=== PATIENT | male | born 1945 | race Caucasian/White ===

== ENCOUNTER 2016-05-26 10:34 | Inpatient (IN) | payer OTHER ==
[~2016-05-26] VITALS: Ht 180.3 cm; Wt 59.6 kg
[2016-05-26] VITALS (8 sets, daily range): BP systolic 72–106; BP diastolic 42–70; PULSE 79–104; TEMP 36.5–36.7; O2SAT 93–96; Ht 180.3 cm; Wt 59.6 kg
[2016-05-26] MEDS ORDERED: ALUMINUM/MAGNESIUM/SIMETH (MAALOX MAX) 30 ML UDC PO PRN (12:45)
[2016-05-26] MEDS ORDERED: ONDANSETRON INJ 2 MG/ML 2 ML VIAL IV PRN (12:45)
[2016-05-26] MEDS ORDERED: NITROGLYCERIN 0.4 MG SL PER TAB CHARGE SL PRN (12:45)
[2016-05-26] MEDS ORDERED: MAGNESIUM HYDROXIDE SUSP 30 ML UDC PO PRN (12:45)
[2016-05-26] MEDS ORDERED: POLYETHYLENE (MIRALAX) 17 GM PACK PO PRN (12:45)
--- NOTE | 2016-05-26 13:18 | History and Physical ---
History & Physical Date & Time of Service: May 26, 2016 at 12:49 Chief Complaint: Unstable Angina Primary Care Physician: Misha Abernathy D.O. History of Present Illness Source: patient Patient is a pleasant 70 y/o male, with PMHx of HTN, hyperlipidemia, seizure disorder, Alzheimer's, who was transferred from [facility] due to reproducible chest pain and elevated troponin at 0.10. Patient is a very poor historian, secondary to dementia. No family present, attempted to call contact number with no answer. Per patient, unsure if will be coming today because "she has other family members who are very sick." According to patient, he currently has no complaints. He states he has left shoulder/wrist discomfort, but that has been ongoing for "years." When asking patient why he is here today , he states, "I think because I needed to get blood work." While speaking with patient, he made a slight move and grabbed both sides of his rib cage. Patient states he fell the other day while shovelling snow and has pain since. Patient denies any fever, chills, sweats, lightheadedness, dizziness, vision changes, CP , palpitations, edema, SOB, wheezing, cough, abdominal pain, nausea, vomiting, diarrhea, urinary symptoms, melena, numbness/tingling, weakness, anxiety/ depression, active bleeding, or new skin discoloration/changes. According to transferred records, patient arrived to [facility] via EMS with complaints of rib pain and difficulty with breathing after shoveling snow on 05/25. Pain is a 10/10 with deep breaths and 6/10 siting still. Pain is worse with moving. Labs @ 0615: CBC- WBC 4.6, RBC 4.38, hgb 13.9, plt count 219. PRP- Na 137, K 3.7, BUN/Cr 57/1.32, glucose 108, liver enzymes WNL, troponin 0.10 and CK-MB 1.2 Studies: Chest CT- no acute findings. Old right-sided rib fracture Past Medical/Surgical History 1. HTN 2. Hyperlipidemia 3. Seizure disorder 4. Alzheimer's 5. Tobacco abuse Family History family hx not recorded as patient has dementia Social History Smoking Status: Current Every Day Smoker (10 cigs per day ) Alcohol Use: none Marital Status: Housing status: lives with family Allergies Coded Allergies: No Known Allergies (Unverified , 05/26/16) Physical Exam Vital Signs Date Time Temp Pulse Resp B/P Pulse Ox O2 Delivery O2 Flow Rate FiO2 05/26/16 12:12 36.5 92 20 102/68 96 Room Air General Appearance: no apparent distress Head: normocephalic, atraumatic Eyes: normal inspection, PERRL ENT: hearing grossly normal Neck: supple Respiratory/Chest: chest non-tender, lungs clear, no respiratory distress, no accessory muscle use, + pertinent finding (No tenderness to palpation of rib cage bilaterally ) Cardiovascular: regular rate, rhythm, normal peripheral pulses Abdomen/GI: normal bowel sounds, non tender, soft Back: normal inspection Extremities/Musculoskelatal: no calf tenderness, no pedal edema Neurologic/Psych: alert, normal mood/affect Skin: normal color, warm/dry, no rash Diagnostics Laboratory Results Results Past 24 Hours Test 05/26/16 12:34 Range/Units Creatine Kinase MB Ratio 0-3.0 Impression Assessment and Plan 70 y/o male, with PMHx of HTN, hyperlipidemia, seizure disorder, Alzheimer's, who was transferred from [facility] due to reproducible chest pain and elevated troponin at 0.10. CP/elevated troponin: - Admit tele for cardiac monitoring - Start ASA 81 mg PO daily - IV NSS @ 100 ml/hr - Trend cardiac enzymes x3 - Imaging/studies per [facility]: -- Chest CT- no acute findings. Old right-sided rib fracture - Obtain EKG - NPO, until studies/labs and more HPI obtained to decide on further treatment plan---> ?? cardiology consult- ?cath - Check ha1c - Follow CBC and BMP HTN: - Continue Lisinopril 20 mg PO daily Hyperlipidemia: - Continue Atorvastatin 40 mg PO HS - Check lipid panel tomorrow AM Seizure disorder: - Continue Lamictal 150 mg PO BID Alzheimer's: - Continue Namenda 10 mg PO BID Tobacco abuse, 10 cigs per day: - Smoking cessation GI Prophylaxis: - Maalox PRN - IV Zofran PRN - Colace and/or Milk of Mag PRN DVT prophylaxis: - Heparin 5000 units SQ q12 hrs - KAR and SCDs Code Status: - LEVEL I, FULL i personally examined pt and verified all crocker points w T Murarik PAC chest pain - seems actually most c/w rib pain EKG nonacute - ?old Q's vs lead placement/RSR' trop minimally but repeatedly not normal high risk for CAD, never had known IN, never had C vitals noted, nad, talkative, seems easily confused. family present chest pain / elevated troponin -seems to represent unstable angina since he's high risk -med management, echo, trend enzymes, assess current state of risks w BP follow up, A1c, lipid panel -cardiology eval for ?timing of LHC hypotension -appearing somewhat dry - notes he almost never does any exertion - shoveling snow was very unusual for him - IVF, follow DVT proph -heparin SQ otherwise as above Level of Care Med/Surg Advanced Directives Existing Living Will: No Existing Power of Lead Setter: No Resuscitation Status FULL RESUSCITATION VTE Prophylaxis VTE Risk Assessment Done? Y/N: Yes Risk Level: Moderate Given or contraindicated: Unfractionated heparin SQ, T.E.D. Stockings, SCD's
[2016-05-26 13:48] LABS: HEMATOCRIT 36.6 % (42-52); MEAN CELL VOLUME 90.6 fL (80-100); MEAN CORPUSCULAR HEMOGLOBIN 31.9 pg (25-34); MEAN CORPUSCULAR HGB CONC 35.2 g/dl (32-36); MEAN PLATELET VOLUME 9.3 fL (7.4-10.4); PLATELET COUNT 196 K/uL (130-400); RED BLOOD COUNT 4.04 M/uL (4.7-6.1); WHITE BLOOD COUNT 2.21 K/uL (4.8-10.8)
[2016-05-26 14:02] LABS: INR 1.1 (0.9-1.1); PROTHROMBIN TIME (PATIENT) 12.3 SECONDS (9.0-12.0)
[2016-05-26] MEDS ORDERED: LIDODERM (LIDOCAINE) PATCH 5% TD ONE (14:55)
[2016-05-26] MEDS ORDERED: ASPIRIN 81 MG ECTAB PO STA (15:09)
[2016-05-26] MEDS ORDERED: SODIUM CHLORIDE 0.9% 1000ML 1,000 ML IV SCH (15:30)
--- NOTE | 2016-05-26 16:56 | ECHOCARDIOGRAM REPORT ---
*NOTICE TO RECEIVING REPUBLICAN AGENCY This information is strictly Confidential and protected under [place] law. [place] law prohibits you from making any further disclosure of this information unless further disclosure is expressly permitted by the written consent of the person to whom it pertains or is authorized by law. A general authorization for the release of medical or other information is not sufficient for this purpose. Hospital accepts no responsibility if the information is made available to any other person, INCLUDING THE PATIENT. Interpretation Summary * Normal to hyperdynamic left ventricular systolic function. * Normal chamber dimensions. * No significant valvular regurgitation noted. * Left ventricular diastolic dysfunction. Procedure Details * A complete two-dimensional transthoracic echocardiogram was performed (2D, M-mode, Doppler and color flow Doppler). Left Ventricle * The left ventricle is normal in size. * There is normal left ventricular wall thickness. * Left ventricular systolic function is normal. * Ejection Fraction = 65-70%. * A full diastolic examination was done with clinical findings of Class I diastolic dysfunction. * The left ventricular wall motion is normal. Right Ventricle * The right ventricle is normal in size and function. Atria * The left atrial size is normal. * Right atrium not well visualized. Mitral Valve * The mitral valve is grossly normal. * There is no mitral valve stenosis. * Significant mitral regurgitation is absent. Tricuspid Valve * The tricuspid valve is not well visualized. * Significant tricuspid regurgitation is absent. Aortic Valve * The aortic valve is not well visualized. * The valve appears to be calcified, trileaflet , and to have decreased but adequate opening. * There is no significant aortic regurgitation. Pulmonic Valve * The pulmonic valve is not well visualized. * There is no significant pulmonary regurgitation. Great Vessels * Borderline aortic root dilatation. Pericardium/Pleural * There is no pericardial effusion. Great Vessels * Normal inferior vena cava diameter and respiratory variation suggests normal central venous pressure. MMode 2D Measurements and Calculations IVSd 0.97 cm IVSs 1.1 cm LVIDd 4.5 cm LVIDs 2.8 cm LVPWd 0.87 cm LVPWs 1.2 cm IVS/LVPW 1.1 FS 37.7 % EDV(Teich) 93.1 ml ESV(Teich) 29.9 ml EF(Teich) 67.9 % EDV(cubed) 92.0 ml ESV(cubed) 22.3 ml EF(cubed) 75.8 % % IVS thick 16.7 % % LVPW thick 35.2 % LV mass(C)d 137.3 grams LV mass(C)dI 67.3 grams/m\S\2 LV mass(C)s 93.8 grams LV mass(C)sI 46.0 grams/m\S\2 SV(Teich) 63.2 ml SI(Teich) 31.0 ml/m\S\2 SV(cubed) 69.7 ml SI(cubed) 34.2 ml/m\S\2 Ao root diam 3.9 cm Ao root area 12.1 cm\S\2 LA dimension 3.6 cm LA/Ao 0.92 LVOT diam 2.0 cm LVOT area 3.0 cm\S\2 Doppler Measurements and Calculations MV E max jesus 39.5 cm/sec MV A max jesus 76.4 cm/sec MV E/A 0.52 MV P1/2t max jesus 39.3 cm/sec MV P1/2t 101.7 msec MVA(P1/2t) 2.2 cm\S\2 MV dec slope 113.1 cm/sec\S\2 MV dec time 0.38 sec
[2016-05-26] MEDS: ACETAMINOPHEN 325 MG TAB PO PRN (19:01)
[2016-05-26] MEDS: ATORVASTATIN 40 MG TAB PO SCH (19:37)
[2016-05-26] MEDS: MEMANTINE 10 MG TAB PO SCH (19:37)
[2016-05-26] MEDS: HEPARIN SOD 5000 UNIT/0.5 ML CARP SQ SCH (19:38)
[2016-05-26] MEDS: SODIUM CHLORIDE 0.9% 1000ML 1,000 ML IV SCH (22:38)
[2016-05-27] VITALS (9 sets, daily range): BP systolic 80–130; BP diastolic 52–90; PULSE 79–112; TEMP 36.2–36.8; O2SAT 79–94
[2016-05-27] MEDS ORDERED: NURSING VERBAL MED ORDER ONE ×2 (01:00→13:30)
[2016-05-27] MEDS: ACETAMINOPHEN 325 MG TAB PO PRN (03:55)
[2016-05-27] MEDS: DICLOFENAC SOD 1% GEL 100 GM TUBE EXT PRN ×2 (03:55→09:02)
[2016-05-27 06:18] LABS: HEMATOCRIT 36.1 % (42-52); MEAN CELL VOLUME 90.3 fL (80-100); MEAN CORPUSCULAR HEMOGLOBIN 31.3 pg (25-34); MEAN CORPUSCULAR HGB CONC 34.6 g/dl (32-36); MEAN PLATELET VOLUME 9.6 fL (7.4-10.4); PLATELET COUNT 208 K/uL (130-400); WHITE BLOOD COUNT 4.24 K/uL (4.8-10.8)
[2016-05-27 06:39] LABS: ESTIMATED AVERAGE GLUCOSE 114 mg/dl; HA1C FLAG Normal (Normal)
[2016-05-27 07:11] LABS: BLOOD UREA NITROGEN 50 mg/dl (7-18); BUN/CREATININE RATIO 20.9 (10-20); CALCIUM 7.8 mg/dl (8.5-10.1); CARBON DIOXIDE 16 mmol/L (21-32); CHLORIDE 105 mmol/L (98-107); GLUCOSE 58 mg/dl (70-99); POTASSIUM 4.5 mmol/L (3.5-5.1); SODIUM 136 mmol/L (136-145)
[2016-05-27 07:19] LABS: CHOLESTEROL 63 mg/dl (0-200); CHOLESTEROL/HDL RATIO 1.9; HDL CHOLESTEROL 34 mg/dl; LDL CHOLESTEROL CALCULATED 11 mg/dl; TRIGLYCERIDES 91 mg/dl (0-150); VERY LOW DENSITY LIPOPROT CALC 18 mg/dl
[2016-05-27] MEDS ORDERED: LISINOPRIL 20 MG TAB PO SCH (09:00)
[2016-05-27] MEDS: SODIUM CHLORIDE 0.9% 1000ML 1,000 ML IV SCH (09:00)
[2016-05-27] MEDS: MEMANTINE 10 MG TAB PO SCH ×2 (09:02→21:11)
[2016-05-27] MEDS: LIDODERM (LIDOCAINE) PATCH 5% TD SCH (09:02)
[2016-05-27] MEDS: ASPIRIN 81 MG ECTAB PO SCH (09:02)
[2016-05-27] MEDS: HEPARIN SOD 5000 UNIT/0.5 ML CARP SQ SCH ×2 (09:07→21:16)
[2016-05-27] MEDS ORDERED: SODIUM CHLORIDE 0.9% 500ML 500 ML IV SCH (10:00)
[2016-05-27] MEDS ORDERED: SODIUM CHLORIDE 0.9% 1000ML 1,000 ML IV SCH ×2 (11:00→22:15)
[2016-05-27] MEDS ORDERED: NICOTINE 21 MG/24 HR TDSY TD ONE (13:45)
--- NOTE | 2016-05-27 13:53 | CARDIOLOGY CONSULTATION ---
DATE OF CONSULTATION: 05/27/2016 PERTINENT HISTORY: Mr. Condon is a demented 70-year-old white male transferred from the [facility] yesterday with reproducible chest pain and elevated troponin. This consultation was ordered to assist in his management. The majority of the history is taken from the chart and the patient's son who was at the bedside. Apparently, the patient was shoveling snow on the 25 of May. He developed a reproducible chest pain, proceeded to the Emergency Room at [facility] for further care. His troponin I level is mildly elevated at 0.1 and he was transferred to our institution for consideration of a cardiac catheterization. Of note, a CT scan of the chest performed at [facility] failed to show an aortic catastrophe or evidence of pulmonary embolus. The patient is perseverating today on getting out of bed. He claims to have had no chest discomfort in the last 24 hours. He explains to his son that he needs to "get up and go do his laundry." Results of his echocardiogram and diagnostic testing reviewed with the patient's son at the bedside. PAST MEDICAL HISTORY: 1. Hypertension. 2. Hypercholesterolemia. 3. Seizure disorder. 4. Alzheimer dementia. MEDICATIONS: 1. Lipitor 40 mg at bedtime. 2. Aspirin 81 mg per day. 3. Heparin 5000 units subQ q. 12 hours. 4. Lamictal 150 mg b.i.d. 5. Namenda 10 mg b.i.d. ALLERGIES: None. SOCIAL HISTORY: The patient is and lives with his . Smokes 10 cigarettes per day. No alcohol. FAMILY HISTORY: Unobtainable. Negative according to the son. REVIEW OF SYSTEMS: Unobtainable. PHYSICAL EXAMINATION: GENERAL: This is a well-developed, well-nourished white male, appearing older than his stated age. VITAL SIGNS: Blood pressure is 105/70 with a regular pulse of 78. Respiratory rate is 18. The patient is afebrile at 36.6 degrees Celsius. Saturation is 90% on room air. HEENT: Negative. NECK: Supple with full carotid upstrokes. There are no carotid bruits. Jugular venous pressure is flat at 90 degrees. There is no thyromegaly. CARDIOVASCULAR: Reveals a regular rhythm with normal S1 and S2. Heart sounds are distant. No obvious murmurs. LUNGS: Clear without rales, rhonchi, or wheezes. ABDOMEN: Benign without bruits. EXTREMITIES: Reveal intact radial artery pulses bilaterally. There is no peripheral edema. DATA: CBC notes a hemoglobin of 12.5, hematocrit 36.1, white count 4.2, platelet count 208,000. Electrolytes note a sodium of 136, potassium 4.5, chloride 105, bicarb 16, BUN 50, creatinine 2.4, glucose 141. Troponin I level on presentation was 0.068 with followup values of 0.053 and 0.061. Cholesterol panel notes an LDL of 11 and an HDL of 34. EKG notes sinus rhythm with a left axis deviation and poor R-wave progression across the anterior precordium. Echocardiogram notes normal to hyperdynamic systolic function with an ejection fraction of 65-70%. There is evidence of diastolic dysfunction. No significant valvular pathology. IMPRESSION: Mr. Condon was apparently transferred to this institution with reproducible musculoskeletal chest pain. His poor mental status makes history taking at this time difficult. His troponin is mildly elevated, but he demonstrates normal to hyperdynamic systolic function. The patient's profound dementia is a contraindication to proceeding with a cardiac catheterization. He is hemodynamically stable at this time and I would follow conservative medical care. This was discussed in detail with the patient's son who was at the bedside. PLAN: 1. We would not proceed with cardiac catheterization. 2. Continue with medical management for possible coronary disease. 3. Further recommendations depending on his clinical course.
[2016-05-27 15:22] LABS: BUN/CREATININE RATIO 23.1 (10-20); CALCIUM 7.8 mg/dl (8.5-10.1); CREATININE 2.6 mg/dl (0.60-1.40); POTASSIUM 4.4 mmol/L (3.5-5.1)
--- NOTE | 2016-05-27 16:17 | DIAGNOSTIC IMAGING REPORT ---
SINGLE VIEW CHEST CLINICAL HISTORY: Rhonchi on physical examination. FINDINGS: An AP, portable, upright chest radiograph is obtained. No prior studies are available for comparison at the time of dictation. The examination is significantly degraded by portable technique and patient rotation. The cardiomediastinal heart is enlarged and there is atherosclerotic calcification of the thoracic aorta. There is mild pulmonary vascular congestion. Small pleural effusions are identified there is focal eventration of the right hemidiaphragm. There are bibasilar airspace opacities. Emphysema and chronic appearing interstitial thickening are noted. No pneumothorax is seen. The skeletal structures are osteopenic. The bony thorax is grossly intact. IMPRESSION: 1. Cardiomegaly with evidence of mild congestive failure. 2. Emphysema. 3. Small pleural effusions and bibasilar airspace opacities. This likely represents atelectasis. Clinical correlation will be required. Electronically signed by: Jefry Gan M.D. 05/27/2016 4:16 PM Dictated Date/Time: 05/27/2016 4:14 PM
--- NOTE | 2016-05-27 16:42 | DIAGNOSTIC IMAGING REPORT ---
ULTRASOUND KIDNEYS AND BLADDER CLINICAL HISTORY: Acute renal insufficiency. COMPARISON STUDY: No priors. TECHNIQUE: Real-time, grayscale, and color flow sonography of the kidneys and bladder is performed. Images are reviewed in the transverse and longitudinal planes. FINDINGS: Kidneys: The kidneys are normal in size and echotexture. The right kidney measures 9.9 cm in length and the left kidney measures 10.7 cm in length. There is no hydronephrosis. No shadowing renal calculi are identified. A 6.3 cm exophytic cyst arises from left upper pole. There is no sonographic evidence of solid renal mass lesion. Trace bilateral perinephric fluid is identified. Bladder: The bladder is decompressed and not well assessed. Ureteral jets were not seen. Pleural spaces: There is a trace right pleural effusion. Abdomen: There is a small volume of abdominopelvic ascites. IMPRESSION: 1. The kidneys demonstrate cortical atrophy and are without hydronephrosis. 2. The bladder was decompressed and not well assessed. 3. Trace right pleural effusion. 4. Small volume of abdominopelvic ascites. Electronically signed by: Jefry Gan M.D. 05/27/2016 4:40 PM Dictated Date/Time: 05/27/2016 4:38 PM
[2016-05-27 18:05] LABS: MANUAL MICROSCOPIC REQUIRED? YES; URINE APPEARANCE CLOUDY (CLEAR); URINE BILIRUBIN NEG (NEG); URINE COLOR YELLOW; URINE NITRITE NEG (NEG); URINE PH 5.5 (4.5-7.5); URINE SPECIFIC GRAVITY >= 1.030 (1.000-1.030); UROBILINOGEN NEG (NEG)
[2016-05-27 18:06] LABS: REVIEW REQ? NO
[2016-05-27 18:18] LABS: URINE BACTERIA 1+ (NEG); URINE HYALINE CAST >30 /lpf (0-5); URINE WBC >30 /hpf (0-5)
[2016-05-27 18:19] LABS: URINE WHITE BLOOD CELL CAST 0-3 /lpf (0)
[2016-05-27] MEDS: ATORVASTATIN 40 MG TAB PO SCH (21:11)
[2016-05-27] MEDS ORDERED: VANCOMYCIN INJ 1,000 MG in SODIUM CHLORIDE 0.9% 250ML 250 ML IV STA (21:57)
--- NOTE | 2016-05-27 22:08 | DIAGNOSTIC IMAGING REPORT ---
KUB CLINICAL HISTORY: Hypoxia. FINDINGS: 2 AP, portable, supine abdominal radiograph are correlated with renal ultrasound performed the same day 05/27/2016. There is a nonobstructed abdominal bowel gas pattern. No evidence of intraperitoneal free air is seen on these supine views. Calcified phleboliths are present in the pelvis. There is atherosclerotic calcification of the femoral arteries. The skeletal structures are osteopenic. Lumbosacral spondylosis is observed. There is a left pleural effusion. IMPRESSION: Nonobstructed abdominal bowel gas pattern. Electronically signed by: Jefry Gan M.D. 05/27/2016 10:07 PM Dictated Date/Time: 05/27/2016 10:06 PM
[2016-05-27] MEDS ORDERED: IPRATROPIUM BROMIDE NEB SOLN 0.02% 2.5 ML VIAL INH PRN (22:15)
[2016-05-27] MEDS ORDERED: LEVALBUTEROL 1.25MG/0.5ML NEB INH PRN (22:15)
--- NOTE | 2016-05-27 22:16 | DIAGNOSTIC IMAGING REPORT ---
SINGLE VIEW CHEST CLINICAL HISTORY: Dyspnea. FINDINGS: An AP, portable, upright chest radiograph is compared to study performed earlier the same day 05/27/2016. The examination is significantly degraded by portable technique and patient rotation. The cardiomediastinal heart is enlarged and there is atherosclerotic calcification of the thoracic aorta. Pulmonary basilar congestion has worsened from earlier today. Mild interstitial edema is suspected. Small pleural effusions are identified there is focal eventration of the right hemidiaphragm. There are bibasilar airspace opacities. Emphysema and chronic appearing interstitial thickening are noted. No pneumothorax is seen. The skeletal structures are osteopenic. The bony thorax is grossly intact. IMPRESSION: 1. Cardiomegaly with worsening congestive failure and evidence of interstitial edema. 2. Emphysema. 3. Small pleural effusions and bibasilar airspace opacities. This likely represents atelectasis. Clinical correlation will be required. 4. Gas density below the right hemidiaphragm demonstrates lung markings and likely represents the posterior aspect of the diaphragm. Intraperitoneal free air is considered much less likely. Correlation with decubitus abdominal views is recommended for further assessment. Electronically signed by: Jefry Gan M.D. 05/27/2016 10:15 PM Dictated Date/Time: 05/27/2016 10:11 PM
[2016-05-27 22:19] LABS: ISTAT ALLEN TEST Pass; ISTAT ARTERIAL BLOOD GAS HCO3 13 meq/L (19-24); ISTAT ARTERIAL BLOOD GAS PCO2 29 mmHg (35-46); ISTAT ARTERIAL BLOOD GAS PO2 58 mmHg (80-95); ISTAT ARTERIAL BLOOD GAS pH 7.25 (7.35-7.45); ISTAT CARBON DIOXIDE 14 mEq/l (24-31); ISTAT DELIVERY SYSTEM Cannula; ISTAT SITE R Radial
[2016-05-27] MEDS ORDERED: VANCOMYCIN INJ 1,300 MG in SODIUM CHLORIDE 0.9% 250ML 250 ML IV SCH (22:30)
[2016-05-27] MEDS ORDERED: PIPERACILL/TAZOBAC IV 3.375 GM in DEXTROSE 5% 100ML 100 ML IV SCH (22:30)
[2016-05-27] MEDS ORDERED: PIPERACILL/TAZOBAC CONSULT ACTIVE PRN (22:30)
[2016-05-27] MEDS ORDERED: VANCOMYCIN CONSULT ACTIVE PRN (22:30)
--- NOTE | 2016-05-27 22:51 | Progress Note ---
Progress Note DOC PHOTOGRAMMETRIC STEREO COMPILER NOTE: I was called to see the patient regarding decreasing oxygenation. He was noted to have O2 sat declining to 79% room air, and improved to 89% on 6 L nasal cannula O2. This decline in oxygenation was preceded by an episode of nausea and vomiting. A stat chest x-ray, KUB and ABG was performed, and the patient was transferred to the ICU on BiPAP. Next The patient is lethargic, nonresponsive and in moderate respiratory distress. HEENT--PERRL, EOMI, mucous membranes and oropharynx dry. Neck--supple, no JVD or bruits, thyroid normal, trachea midline, no adenopathy. Heart--mildly tachycardic no extra beats, no murmurs, rubs or gallops. Lungs--decreased breath sounds at the bases bilaterally, moderate respiratory distress with accessory muscle use. Abdomen--decreased bowel sounds, firm, mildly distended. Extremities--no cyanosis, clubbing or edema. There are good distal pulses b/l. Dermatologic--normal skin turgor, normal color, warm and dry, no abnormal lymph nodes, no rash. Neurologic--cranial nerves II through XII grossly intact. Rheumatologic--deferred Psychiatric--lethargic. Assessment and Plan: Bilateral lower lobe Aspiration Pneumonia secondary to vomiting--ABG showed pH 7.248, PCO2 23, PCO2 58, O2 sat 86% on 6 L nasal cannula O2. Patient is transferred to the ICU. He'll be started on BiPAP per protocol, Zosyn 3.375 mg IV every 8 hours, vancomycin IV per renal dosing, Xopenex with Atrovent nebulizers to use every 6 hours while awake and every 2 hours when necessary, nothing by mouth status, normal saline at 100 ML's per hour. We'll follow serial imaging studies, laboratories and ABGs. Patient may require an NG tube, although KUB x-ray looks benign at this time, his belly is firm on examination. Total critical care time 35 minutes.
[2016-05-27] MEDS ORDERED: NSS + 20MEQ KCL 1000ML 1,000 ML IV SCH (23:00)
[2016-05-28] VITALS (40 sets, daily range): BP systolic 63–140; BP diastolic 44–83; PULSE 84–119; TEMP 36.6–37.4; O2SAT 65–100
[2016-05-28] MEDS: LEVALBUTEROL 1.25MG/0.5ML NEB INH SCH ×2 (02:30→07:00)
[2016-05-28] MEDS: IPRATROPIUM BROMIDE NEB SOLN 0.02% 2.5 ML VIAL INH SCH ×2 (02:30→07:00)
[2016-05-28] MEDS: SODIUM BICARBONATE 8.4% INJ 50 MEQ in D5W AND 1/2NSS 1,000 ML IV SCH ×2 (02:44→08:40)
[2016-05-28 02:56] LABS: HEMATOCRIT 34.5 % (42-52); MEAN CELL VOLUME 89.6 fL (80-100); MEAN CORPUSCULAR HEMOGLOBIN 31.4 pg (25-34); MEAN PLATELET VOLUME 9.6 fL (7.4-10.4); PLATELET COUNT 202 K/uL (130-400); RED BLOOD COUNT 3.85 M/uL (4.7-6.1); WHITE BLOOD COUNT 2.68 K/uL (4.8-10.8)
[2016-05-28] MEDS ORDERED: LEVALBUTEROL/IPRATROPIUM NEB INH SCH (03:00)
[2016-05-28 03:07] LABS: ALB/GLOB RATIO 0.7 (0.9-2); BUN/CREATININE RATIO 25.8 (10-20); CALCIUM 7.8 mg/dl (8.5-10.1); CREATININE 3.1 mg/dl (0.60-1.40); POTASSIUM 5.1 mmol/L (3.5-5.1)
[2016-05-28 03:16] LABS: MEAN CORPUSCULAR HGB CONC 35.1 g/dl (32-36)
[2016-05-28 04:00] LABS: BASO % 0.4 %; BASO ABS # 0.01 K/uL (0-0.2); COMPLETE YES; ECHINOCYTES 1+; LYMPH ABS # 0.24 K/uL (1.2-3.4); MONO % 0.4 %; NEUT % 87.2 %; VACUOLIZATION 2+
[2016-05-28] MEDS ORDERED: PIPERACILL/TAZOBAC IV 3.375 GM in DEXTROSE 5% 100ML IV SCH ×2 (04:00→16:00)
[2016-05-28] MEDS ORDERED: NOREPINEPHRINE BIT INJ 8 MG in DEXTROSE 5% 500ML 500 ML IV PRN (04:41)
[2016-05-28 06:03] LABS: MEAN CELL VOLUME 88.8 fL (80-100); MEAN CORPUSCULAR HEMOGLOBIN 31.6 pg (25-34); MEAN CORPUSCULAR HGB CONC 35.6 g/dl (32-36); MEAN PLATELET VOLUME 9.3 fL (7.4-10.4); PLATELET COUNT 190 K/uL (130-400); RED BLOOD COUNT 3.83 M/uL (4.7-6.1); WHITE BLOOD COUNT 2.99 K/uL (4.8-10.8)
[2016-05-28 06:15] LABS: INR 1.3 (0.9-1.1); PARTIAL THROMBOPLASTIN RATIO 1.4; PROTHROMBIN TIME (PATIENT) 14.1 SECONDS (9.0-12.0)
[2016-05-28 06:29] LABS: COMPLETE YES; ECHINOCYTES 1+; VACUOLIZATION 1+
[2016-05-28 06:50] LABS: BUN/CREATININE RATIO 24.4 (10-20); CALCIUM 8.1 mg/dl (8.5-10.1); CREATININE 3.3 mg/dl (0.60-1.40); MAGNESIUM 2.3 mg/dl (1.8-2.4); POTASSIUM 4.8 mmol/L (3.5-5.1)
[2016-05-28 06:55] LABS: PHOSPHORUS 5.4 mg/dl (2.5-4.9)
[2016-05-28 07:07] LABS: EOS % 0.3 %; IG% 0.3 %; LYMPH % 8.7 %; LYMPH ABS # 0.26 K/uL (1.2-3.4); MONO % 0.7 %
--- NOTE | 2016-05-28 07:18 | DIAGNOSTIC IMAGING REPORT ---
CHEST ONE VIEW PORTABLE CLINICAL HISTORY: Hypoxia COMPARISON STUDY: Chest radiograph May 27, 2016. FINDINGS: There is no pneumothorax. There is a small left pleural effusion. Bibasilar opacities persist. Perihilar opacities persist. There is mild interstitial thickening. Cardiac size is at the upper limits of normal. There is retrocardiac consolidation. Lucency under the diaphragm is again noted. IMPRESSION: 1. Lucency under the diaphragm. This may reflect bowel gas however free air could appear similar. A follow-up abdominal series is recommended to exclude free air. 2. Persistent bibasilar opacities which could reflect pneumonia or atelectasis. 3. Interstitial thickening which may reflect mild edema. 4. Small left pleural effusion. Electronically signed by: Jg Garnett M.D. 05/28/2016 7:17 AM Dictated Date/Time: 05/28/2016 7:13 AM
--- NOTE | 2016-05-28 07:30 | Progress Note ---
Subjective Date of Service: 05/27/16 please note late addendum from date of service 05/27 Subjective Pt evaluation today including: conversation w/ patient, physical exam, chart review, lab review, review of studies, review of inpatient medication list no meaningful HPI or ROS mostly wants to go home. wants help sitting up in bed offers no complaints - of course with mentation HPI and ROS of very questionable veracity, but denies cp abdominal pain sob. disoriented. thinks we're in a different town, when asked what kind of building this is, he answers "brick" Review of Systems see above, not obtainable in any meaningful way Objective Vital Signs Date Time Temp Pulse Resp B/P Pulse Ox O2 Delivery O2 Flow Rate FiO2 05/28/16 06:18 96 25 101/64 91 05/28/16 06:13 92 24 100/68 94 05/28/16 06:08 93 25 89/63 93 05/28/16 06:03 93 25 94/64 05/28/16 06:02 95 25 91/68 05/28/16 05:58 93 27 94/64 95 05/28/16 05:53 84 25 90/65 95 05/28/16 05:48 101 26 93/66 05/28/16 05:43 99 28 108/67 97 05/28/16 05:38 97 27 108/69 96 05/28/16 05:33 87 27 105/70 96 05/28/16 05:30 90 27 97 05/28/16 05:18 104 28 105/79 97 05/28/16 05:13 101 28 109/75 97 05/28/16 05:08 105 30 105/78 95 05/28/16 05:03 89 30 100/72 97 05/28/16 04:58 85 29 82/63 95 05/28/16 04:53 88 30 81/56 95 05/28/16 04:53 88 30 81/56 95 05/28/16 04:43 89 30 63/50 95 05/28/16 04:43 89 30 63/50 95 05/28/16 04:38 89 31 72/58 81 05/28/16 04:38 89 31 72/58 81 05/28/16 04:36 95 33 70/53 65 05/28/16 04:36 95 33 70/53 65 05/28/16 04:34 91 33 74/44 05/28/16 04:33 92 33 85/58 79 05/28/16 04:33 92 33 85/58 79 05/28/16 04:32 36.9 90 31 77/59 88 BiPAP 05/28/16 04:32 90 31 77/59 88 05/28/16 04:15 BiPAP 05/28/16 02:32 95 35 92 BiPAP/CPAP 70 05/28/16 02:30 95 92 70 05/28/16 01:59 95 37 102/72 92 BiPAP 70 05/28/16 00:59 96 37 125/77 92 BiPAP 70 05/28/16 00:12 36.6 96 33 100/79 94 BiPAP 70 05/28/16 00:01 BiPAP 05/27/16 23:54 112 93 70 05/27/16 23:46 36.5 93 18 89 6.0 05/27/16 22:30 36.8 98 34 130/90 94 70 05/27/16 22:11 97 94 70 05/27/16 21:40 89 Nasal Cannula 6.0 05/27/16 21:39 36.5 93 18 102/71 79 Room Air 05/27/16 20:05 Room Air 05/27/16 16:00 Room Air 05/27/16 14:17 100 22 119/79 90 05/27/16 12:30 Room Air 05/27/16 07:45 Room Air Physical Exam General Appearance: no apparent distress (laying in bed) Eyes: EOMI ENT: hearing grossly normal Neck: trachea midline Respiratory/Chest: no respiratory distress, no accessory muscle use, + rhonchi (coarse throughout) Cardiovascular: regular rate, rhythm Abdomen: non tender (nondistended), soft Extremities: normal range of motion 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, alert, + disoriented Skin: normal color, warm/dry Laboratory Results Last 24 Hours Test 05/27/16 14:43 05/27/16 22:03 05/27/16 23:59 05/28/16 02:39 Sodium Level 135 mmol/L 137 mmol/L Potassium Level 4.4 mmol/L 5.1 mmol/L Chloride Level 106 mmol/L 107 mmol/L Carbon Dioxide Level 15 mmol/L 15 mmol/L Anion Gap 14.0 mmol/L 15.0 mmol/L Blood Urea Nitrogen 60 mg/dl 80 mg/dl Creatinine 2.60 mg/dl 3.10 mg/dl Est Creatinine Clear Calc Drug Dose 21.8 ml/min 18.3 ml/min Estimated GFR () 27.9 22.6 Estimated GFR (Non- 24.1 19.5 BUN/Creatinine Ratio 23.1 25.8 Random Glucose 65 mg/dl 71 mg/dl Calcium Level 7.8 mg/dl 7.8 mg/dl Blood Gas Sample Site R Radial Bedside Blood Gas pH (LAB) 7.25 Bedside Blood Gas pCO2 (LAB) 29 mmHg Bedside Blood Gas pO2 (LAB) 58 mmHg Bedside Blood Gas HCO3 (LAB) 13 meq/L Bedside Blood Gas Total CO2 14 mEq/l Bedside Blood Gas Base Excess (LAB) -15.0 meq/L Bedside Blood Gas O2 Saturation 86.0 % Tod Test Pass Oxygen Delivery Device Cannula Bedside Glucose 85 mg/dl White Blood Count 2.68 K/uL Red Blood Count 3.85 M/uL Hemoglobin 12.1 g/dL Hematocrit 34.5 % Mean Corpuscular Volume 89.6 fL Mean Corpuscular Hemoglobin 31.4 pg Mean Corpuscular Hemoglobin Concent 35.1 g/dl Platelet Count 202 K/uL Mean Platelet Volume 9.6 fL Neutrophils (%) (Auto) 87.2 % Lymphocytes (%) (Auto) 9.0 % Monocytes (%) (Auto) 0.4 % Eosinophils (%) (Auto) 0.0 % Basophils (%) (Auto) 0.4 % Neutrophils # (Auto) 2.34 K/uL Lymphocytes # (Auto) 0.24 K/uL Monocytes # (Auto) 0.01 K/uL Eosinophils # (Auto) 0.00 K/uL Basophils # (Auto) 0.01 K/uL RDW Standard Deviation 47.1 fL RDW Coefficient of Variation 14.3 % Immature Granulocyte % (Auto) 3.0 % Immature Granulocyte # (Auto) 0.08 K/uL Nucleated RBC Absolute Count (auto) 0.03 K/uL Nucleated Red Blood Cells % 1.0 % Toxic Vacuolation 2+ Echinocytes 1+ Total Bilirubin 0.7 mg/dl Aspartate Amino Transf (AST/SGOT) 75 U/L Alanine Aminotransferase (ALT/SGPT) 24 U/L Alkaline Phosphatase 45 U/L Total Protein 5.5 gm/dl Albumin 2.3 gm/dl Globulin 3.2 gm/dl Albumin/Globulin Ratio 0.7 Test 05/28/16 05:16 05/28/16 05:57 White Blood Count 2.99 K/uL Red Blood Count 3.83 M/uL Hemoglobin 12.1 g/dL Hematocrit 34.0 % Mean Corpuscular Volume 88.8 fL Mean Corpuscular Hemoglobin 31.6 pg Mean Corpuscular Hemoglobin Concent 35.6 g/dl Platelet Count 190 K/uL Mean Platelet Volume 9.3 fL Neutrophils (%) (Auto) 90.0 % Lymphocytes (%) (Auto) 8.7 % Monocytes (%) (Auto) 0.7 % Eosinophils (%) (Auto) 0.3 % Neutrophils # (Auto) 2.69 K/uL Lymphocytes # (Auto) 0.26 K/uL Monocytes # (Auto) 0.02 K/uL Eosinophils # (Auto) 0.01 K/uL RDW Standard Deviation 47.3 fL RDW Coefficient of Variation 14.5 % Immature Granulocyte % (Auto) 0.3 % Immature Granulocyte # (Auto) 0.01 K/uL Neutrophils % (Manual) % Lymphocytes % (Manual) % Monocytes % (Manual) % Metamyelocytes % % Neutrophils # (Manual) K/uL Total Absolute Neutrophils K/uL Lymphocytes # (Manual) K/uL Total Absolute Lymphocytes K/uL Monocytes # (Manual) K/uL Metamyelocytes # K/uL Toxic Vacuolation 1+ Echinocytes 1+ Prothrombin Time 14.1 SECONDS Prothromb Time International Ratio 1.3 Activated Partial Thromboplast Time 36.9 SECONDS Partial Thromboplastin Ratio 1.4 Sodium Level 136 mmol/L Potassium Level 4.8 mmol/L Chloride Level 106 mmol/L Carbon Dioxide Level 15 mmol/L Anion Gap 15.0 mmol/L Blood Urea Nitrogen 81 mg/dl Creatinine 3.30 mg/dl Est Creatinine Clear Calc Drug Dose 17.8 ml/min Estimated GFR () 20.9 Estimated GFR (Non- 18.1 BUN/Creatinine Ratio 24.4 Random Glucose 80 mg/dl Calcium Level 8.1 mg/dl Phosphorus Level 5.4 mg/dl Magnesium Level 2.3 mg/dl Total Bilirubin 0.5 mg/dl Direct Bilirubin 0.2 mg/dl Aspartate Amino Transf (AST/SGOT) 77 U/L Alanine Aminotransferase (ALT/SGPT) 24 U/L Alkaline Phosphatase 44 U/L Total Protein 5.4 gm/dl Albumin 2.3 gm/dl Lipase 122 U/L Bedside Glucose 77 mg/dl Assessment and Plan 70 y/o male, with PMHx of HTN, hyperlipidemia, seizure disorder, Alzheimer's, who was transferred from [facility] due to reproducible chest pain and elevated troponin at 0.10. CP/elevated troponin: - unstable angina / small NSTEMI - appearing medically stable at this time - between dementia and ARF, as well as no unstable cardiac sx, does not appear appropriate for [facility] at this time - med management, follow. due to low BP right now, and ARF, med management options limited ARF -not responding to IVF -actually appearing mildly fluid overloaded w IVF - stop fluids, but since ARF of yet to be determined origin, and was hypotensive before - will hold on diuresing unless shows more respiratory signs / symptoms (ie right now risk of worsening renal failure or recurrent hypotension too high - will manage w supportive care) -if urine lytes not clearly diagnostic then consult nephrology; renal US showing cortical thinning -given NSTEMI, ARF, hypotension wtihout much provocation, i harbor concerns of diffuse underlying vascular disease. nothing showing instability hinting at dissection (ie no signs of DIC on CBC, no exam findings c/w dissection or rupture, BP responds easily to fluids, but then showed some volume overload) hypotension -off and on. no evidence of septic, cardiogenic; no reason for neurogenic. have to treat as hypovolemic - no evidence of hemorrhage and Hgb stable. does show some response to IVFs, possibly due to fatigue/dehydration from physical exertion prior to admission superimposed on what appears to be a very frail baseline pulmonary edema (initially presumptive, checked CXR, confirmed) -see above under ARF -- supportive care for now HTN: - currently hypotensive off and on - hold lisinopril due to this and ARF Hyperlipidemia: - Continue Atorvastatin 40 mg PO HS Seizure disorder: - Continue Lamictal 150 mg PO BID Dementia: - Continue Namenda 10 mg PO BID Tobacco abuse, 10 cigs per day: - Smoking cessation - nicotine patch due to appearance of agitation maybe being some nicotine withdrawal GI Prophylaxis: - Maalox PRN - IV Zofran PRN - Colace and/or Milk of Mag PRN DVT prophylaxis: - Heparin 5000 units SQ q12 hrs - KAR and SCDs Code Status: - LEVEL I, FULL again currently draft note, despite computer date of 05/28, this note is from date of service 05/27
[2016-05-28] MEDS ORDERED: SODIUM BICARB 8.4% INJ 50 MEQ/50 ML SYR IV STA (07:37)
[2016-05-28] MEDS ORDERED: SODIUM CHLORIDE 0.9% 1000ML 1,000 ML IV SCH (07:45)
[2016-05-28] MEDS ORDERED: SODIUM BICARB 8.4% INJ 50 MEQ/50 ML SYR - CCU EMERGENCY DRUG IV ONE (07:48)
[2016-05-28] MEDS: ASPIRIN 81 MG ECTAB PO SCH (08:00)
[2016-05-28] MEDS: LIDODERM (LIDOCAINE) PATCH 5% TD SCH (08:00)
[2016-05-28] MEDS: NICOTINE 21 MG/24 HR TDSY TD SCH (08:01)
[2016-05-28] MEDS: MEMANTINE 10 MG TAB PO SCH (08:01)
[2016-05-28 08:02] LABS: IPAP 12; ISTAT ALLEN TEST Pass; ISTAT ARTERIAL BLOOD GAS HCO3 14 meq/L (19-24); ISTAT ARTERIAL BLOOD GAS PCO2 35 mmHg (35-46); ISTAT ARTERIAL BLOOD GAS PO2 75 mmHg (80-95); ISTAT ARTERIAL BLOOD GAS pH 7.19 (7.35-7.45); ISTAT CARBON DIOXIDE 15 mEq/l (24-31); ISTAT DELIVERY SYSTEM BIPAP; ISTAT FIO2 100 %; ISTAT RATE 27; ISTAT SITE L Radial
[2016-05-28] MEDS: HEPARIN SOD 5000 UNIT/0.5 ML CARP SQ SCH (08:08)
--- NOTE | 2016-05-28 08:32 | DIAGNOSTIC IMAGING REPORT ---
ABDOMINAL SERIES CLINICAL HISTORY: Abdominal distention. Evaluate for free air. COMPARISON STUDY: [facility] May 27, 2016. FINDINGS: There is lucency outlining the falciform ligament on the supine exam. Suspected free air is noted on the left lateral decubitus image. There is no evidence for a bowel obstruction. IMPRESSION: Suspected large amount of pneumoperitoneum. In the absence of recent intervention, the findings are worrisome for a perforated hollow viscus. A CT of the abdomen and pelvis is recommended. Discussed with Ena Beck at time of dictation. Electronically signed by: Jg Garnett M.D. 05/28/2016 8:31 AM Dictated Date/Time: 05/28/2016 8:25 AM
[2016-05-28] MEDS ORDERED: PANTOprazole INJ 40 MG in SYRINGE 0 ML IV SCH (09:00)
[2016-05-28] MEDS ORDERED: LORAZEPAM 2 MG/ML 1 ML VIAL IV PRN (09:45)
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
[2016-05-28] MEDS: MoRPHine SULFATE 2 MG/ML CARP IV PRN ×2 (12:57→15:44)
--- NOTE | 2016-05-28 14:56 | CRITICAL CARE CONSULTATION ---
DATE OF CONSULTATION: 05/28/2016 CHIEF COMPLAINT: Shortness of breath. HISTORY OF PRESENT ILLNESS: Mr. Condon is a 70-year-old gentleman with a history of advanced dementia who was transferred from [facility] yesterday where he presented with chest pain and a troponin of 0.10. He was transferred for cardiology evaluation and was seen by Dr. Mendoza, yesterday. He felt that he had some reproducible musculoskeletal pain and he had normal to hyperdynamic systolic function on his echocardiogram. Consideration was made for potential cardiac catheterization; however, due to the patient's advanced dementia and his hemodynamic stability, conservative management was undertaken. Last night, the patient had an episode of vomiting and oxygen saturations, which prompted his transfer to the intensive care unit. He was hypotensive and required BiPAP 12/6 70%. He was also placed on a Levophed infusion. Additionally, since his admission, his creatinine increased from 2.4 on admission to 3.3 this morning. I saw him when I arrived in the intensive care unit this morning and at that time, there was concern for free air in the abdomen secondary to his chest x-ray this morning. An abdominal series was done and a pneumoperitoneum is suspected. I called his due to concerns that he would need to be intubated prior to the abdominal series being done. Over the phone, she decided to make the patient do not resuscitate code status. PAST MEDICAL HISTORY: Dementia, seizure disorder, hypertension, hyperlipidemia, and tobacco use. PAST SURGICAL HISTORY: None listed. ALLERGIES: No known drug allergies. OUTPATIENT MEDICATIONS: None. SOCIAL HISTORY: He lives with his and smokes 10 cigarettes per day. She tells me she has stage IV sarcoidosis. He does not drink any alcohol. FAMILY HISTORY: Noncontributory. REVIEW OF SYSTEMS: Not obtainable due to patient's dementia. His tells me he was complaining of chest pain and aches and pains all over. He was out shoveling snow 2 days ago. He primarily sleeps and sits in a chair. "He cannot do anything for himself." She denies any knowledge of fevers, chills, nausea, vomiting prior to admission. She denies shortness of breath. She reports pain under his ribs. No lower extremity edema and no bleeding. No melena. PHYSICAL EXAMINATION: VITAL SIGNS: Temperature 37.4, heart rate 103, respiratory rate 24, blood pressure 130/82 on 0.2 mcg per kilogram per minute of Levophed. Oxygen saturation 99% on BiPAP 12/6. GENERAL: He generally looks frail and chronically ill. NEUROLOGIC: He does not respond to commands. He will withdraw to pain. He occasionally reaches for the BIPAP mask. Pupils are round bilaterally. HEENT: Oral examination is deferred due to the BIPAP mask being in place. NECK: Veins are flat. LUNGS: Have bibasilar rales; no rhonchi or wheezes. HEART: Tachycardic, regular, no murmurs. ABDOMEN: Distended, firm, tender and without bowel sounds. EXTREMITIES: Cool. No edema. LABORATORY DATA: White blood cell count 2.99, hemoglobin 12.1, hematocrit 34, platelets 190. Sodium 136, potassium 4.8, chloride 106, CO2 15, BUN 81, creatinine 3.3. Procalcitonin 90.43. Lipase 122, albumin 2.3. C-reactive protein 29.5. PT 14.1, INR 1.3, PTT 36.9. Urinalysis shows greater than 30 white blood cells; no nitrites, no leukocyte esterase, 3+ blood, yeast present. Urine culture pending. Sputum culture pending. IMAGING DATA: Portable chest x-ray and abdominal X-rays were reviewed this morning. He has bibasilar infiltrates and what is likely free air under the diaphragm on the chest x-ray. Renal ultrasound done and shows cortical atrophy without hydronephrosis. IMPRESSION: 1. Acute hypoxemic respiratory failure secondary to aspiration after an episode of vomiting last night. 2. Aspiration pneumonia. 3. Likely intraabdominal free air. 4. Acute kidney injury, possibly upon chronic kidney disease. 5. Metabolic acidosis. 6. Septic shock. 7. Advanced dementia. 8. Likely urinary tract infection. PLAN: Prior to the patient's determining she would like a do not resuscitate code status, I bolused him with a liter of saline and adjusted his BiPAP settings to 15/8. I have ordered blood cultures as well as sputum and urine culture. I discussed the abdominal series with the radiologist who was quite certain that there was free intraperitoneal air. When the patient's family arrived, I discussed his care briefly with his and then Dr. Suárez discussed things in more detail. The decision was made at that time to focus on comfort given his advanced dementia. His kept telling me that he would not want any surgeries or to be on a ventilator or dialysis. Arrangements have been made for transfer to the floor. Support was provided to the family and questions were answered. Critical care time 60 minutes. JESSICA
[2016-05-29] MEDS: MoRPHine SULFATE 2 MG/ML CARP IV PRN ×4 (07:15→20:51)
[2016-05-29] MEDS: NICOTINE 21 MG/24 HR TDSY TD SCH (08:18)
[2016-05-29] MEDS ORDERED: SCOPOLAMINE 1.5 MG TDSY TD SCH (13:30)
[2016-05-29] MEDS: CHECK SCOPOLAMINE PATCH PLACEMENT SCH (16:47)
--- NOTE | 2016-05-29 17:05 | Progress Note ---
Subjective Date of Service: May 29, 2016. Subjective Pt evaluation today including: conversation w/ family, physical exam, chart review, lab review Review of Systems ROS is unobtainable as the patient is non verbal Medications Current Inpatient Medications Medications (Trade) Dose Ordered Sig/Josh Route Start Time Stop Time Status Last Admin Dose Admin Nicotine (Nicoderm Cq 21MG Patch) 1 patch QAM TD 05/28/16 09:00 06/27/16 08:59 05/29/16 08:18 1 PATCH Morphine Sulfate (MoRPHine SULFATE INJ) 2 mg Q1H PRN IV 05/28/16 09:45 06/11/16 09:44 05/29/16 15:16 2 MG Lorazepam (Ativan Inj) 1 mg Q1H PRN IV 05/28/16 09:45 06/27/16 09:44 Scopolamine (Transderm-Scop Patch) 1.5 mg Q3D@1330 TD 05/29/16 13:30 06/28/16 13:29 05/29/16 14:15 1.5 MG Miscellaneous (Remove Transderm-Scop Patch) 1 ea Q3D@1329 N/A 06/01/16 13:29 07/01/16 13:28 Miscellaneous Information (Check Scopolamine Patch Placement) 1 ea QS N/A 05/29/16 16:00 06/28/16 15:59 05/29/16 16:47 1 EA Miscellaneous (Remove Nicoderm Patch) 1 ea HS N/A 05/29/16 21:00 06/28/16 20:59 Objective Vital Signs Date Time Temp Pulse Resp B/P Pulse Ox O2 Delivery O2 Flow Rate FiO2 05/29/16 11:05 Room Air 05/28/16 23:59 Room Air Physical Exam General Appearance: + moderate distress Eyes: + pertinent finding (did not open his eyes) ENT: + pertinent finding (Humming sound when called loudly ) Neck: supple Respiratory/Chest: + decreased breath sounds, + accessory muscle use, + crackles Cardiovascular: + diastolic murmur, + gallop/S3 Abdomen: + distended, + tenderness Neurologic/Psychiatric: + pertinent finding (did not follow commands to me) Skin: warm/dry Assessment and Plan 70 y/o male, with PMHx of HTN, hyperlipidemia, seizure disorder, Alzheimer's, who was transferred from [facility] due to reproducible chest pain and elevated troponin, he was found to have the following problems; unstable angina / small NSTEMI distended , tender abdomen, possible bowel perforation ARF hypotension pulmonary edema (initially presumptive, checked CXR, confirmed) Hyperlipidemia: Seizure disorder: Dementia: Tobacco abuse, 10 cigs per day Plan: was bed side. He is currently comfort measures which appears to be appropriate to his current situation. he seemed comfortable and his was agreeable with the plan. continue current pain management add scopolamine patch no need for any further labs
[2016-05-30] MEDS: CHECK SCOPOLAMINE PATCH PLACEMENT SCH ×3 (01:07→16:01)
[2016-05-30] MEDS: MoRPHine SULFATE 2 MG/ML CARP IV PRN ×6 (02:24→22:57)
[2016-05-30] MEDS: NICOTINE 21 MG/24 HR TDSY TD SCH (08:00)
[2016-05-30 10:19] VITALS: O2SAT 78
--- NOTE | 2016-05-30 18:56 | Progress Note ---
Subjective Date of Service: May 30, 2016. Subjective Pt evaluation today including: conversation w/ family, physical exam Review of Systems ROS was unobtainable Medications Current Inpatient Medications Medications (Trade) Dose Ordered Sig/Josh Route Start Time Stop Time Status Last Admin Dose Admin Nicotine (Nicoderm Cq 21MG Patch) 1 patch QAM TD 05/28/16 09:00 06/27/16 08:59 05/29/16 08:18 1 PATCH Morphine Sulfate (MoRPHine SULFATE INJ) 2 mg Q1H PRN IV 05/28/16 09:45 06/11/16 09:44 05/30/16 18:14 2 MG Lorazepam (Ativan Inj) 1 mg Q1H PRN IV 05/28/16 09:45 06/27/16 09:44 Scopolamine (Transderm-Scop Patch) 1.5 mg Q3D@1330 TD 05/29/16 13:30 06/28/16 13:29 05/29/16 14:15 1.5 MG Miscellaneous (Remove Transderm-Scop Patch) 1 ea Q3D@1329 N/A 06/01/16 13:29 07/01/16 13:28 Miscellaneous Information (Check Scopolamine Patch Placement) 1 ea QS N/A 05/29/16 16:00 06/28/16 15:59 05/30/16 16:01 1 EA Miscellaneous (Remove Nicoderm Patch) 1 ea HS N/A 05/29/16 21:00 06/28/16 20:59 05/29/16 20:47 1 EA Objective Vital Signs Date Time Temp Pulse Resp B/P Pulse Ox O2 Delivery O2 Flow Rate FiO2 05/30/16 16:00 Room Air 05/30/16 10:19 78 Room Air 05/30/16 08:00 Room Air 05/29/16 23:59 Room Air Physical Exam General Appearance: + severe distress Neck: supple Respiratory/Chest: + decreased breath sounds, + crackles, + rales Cardiovascular: regular rate, rhythm Abdomen: + distended, + tenderness Extremities: no pedal edema Skin: normal color Assessment and Plan 70 y/o male, with PMHx of HTN, hyperlipidemia, seizure disorder, Alzheimer's, who was transferred from [facility] due to reproducible chest pain and elevated troponin, he was found to have the following problems; unstable angina / small NSTEMI distended , tender abdomen, possible bowel perforation ARF hypotension pulmonary edema (initially presumptive, checked CXR, confirmed) Hyperlipidemia: Seizure disorder: Dementia: Tobacco abuse, 10 cigs per day Plan: was bed side today again, D/W her the plan. He is currently comfort measures which appears to be appropriate to his current situation. he seemed comfortable and his was agreeable with the plan. continue current pain management add scopolamine patch no need for any further labs
[2016-05-31] MEDS: CHECK SCOPOLAMINE PATCH PLACEMENT SCH (01:46)
[2016-05-31] MEDS: MoRPHine SULFATE 2 MG/ML CARP IV PRN (01:48)
[2016-05-31] MEDS ORDERED: ATROPINE SULFATE 1% OP SOLN 2 ML BTL SL PRN (02:15)
--- NOTE | 2016-05-31 07:23 | Death Summary ---
Summary of Admission Date May 26, 2016 at 11:47 Date & Time of May 31, 2016. 05:22 Cause of perforated hollow viscus Acute renal failure unstable angina / NSTEMI hypotension pulmonary edema Secondary Diagnoses hypotension pulmonary edema Hospital Course 70 y/o male, with PMHx of HTN, hyperlipidemia, seizure disorder, Alzheimer's, who was transferred from [facility] due to reproducible chest pain and elevated troponin, he was found to have unstable angina / small NSTEMI, ARF and distended , tender abdomen,Abd KUB showed large amount of pneumoperitoneum indicating perforated hollow viscus. despite of initial intervention his conditioned worsened and family made him comfort measures. all lab draws were stopped. he on 05/31/2016 at 5:22 Copy To MISHA SIMEON; Misha Simeon D.O.
== END 2016-05-31 10:05 | disposition expired ==
LOC: ENRESERVDT → ENRESERVTM → C.MED 11:47 → UNDOADMIN 11:47 → C.MED 17:36 → EDBEDREQ 05-27 21:58 → C.MSICU 05-27 22:52 → C.MED 05-27 22:52 → C.MSICU 05-28 10:28 → C.4E 05-28 10:28
PROVIDERS: ADMIT Family Medicine; ATTEND Internal Medicine
DX: I21.4 Non-ST elevation (NSTEMI) myocardial infarction (principal); A41.9 Sepsis, unspecified organism; K63.1 Perforation of intestine (nontraumatic); R65.21 Severe sepsis with septic shock; J96.91 Respiratory failure, unspecified with hypoxia; J69.0 Pneumonitis due to inhalation of food and vomit; N17.9 Acute kidney failure, unspecified; I50.30 Unspecified diastolic (congestive) heart failure; Z51.5 Encounter for palliative care; F01.50 Vascular dementia, unspecified severity, without behavioral disturbance, psychotic disturbance, mood disturbance, and anxiety; I95.89 Other hypotension; I10 Essential (primary) hypertension; G30.9 Alzheimer's disease, unspecified; F02.80 Dementia in other diseases classified elsewhere, unspecified severity, without behavioral disturbance, psychotic disturbance, mood disturbance, and anxiety; G40.909 Epilepsy, unspecified, not intractable, without status epilepticus; E78.5 Hyperlipidemia, unspecified; E78.00 Pure hypercholesterolemia, unspecified; F17.210 Nicotine dependence, cigarettes, uncomplicated; Z51.81 Encounter for therapeutic drug level monitoring; Z79.899 Other long term (current) drug therapy; Z66 Do not resuscitate